=== PATIENT | female | born 1960 | race Caucasian/White ===

== ENCOUNTER → 2018-10-21 | Day surgery (SDC) | payer OTHER ==
--- NOTE | 2018-10-21 18:24 | OP ---
DATE OF OPERATION: 10/21/2018 PREOPERATIVE DIAGNOSIS: Abnormal left mammography. POSTOPERATIVE DIAGNOSIS: Abnormal left mammography. PROCEDURE: Left breast stereotactic needle biopsy with clips. SURGEON: Josey Flores MD ANESTHESIA: Local. COMPLICATIONS: None. This is a sterile procedure. INDICATIONS FOR PROCEDURE: Patient presented with a screening mammogram that noted an area of clustering microcalcifications in the upper outer left breast. The recommendation was for needle biopsy for definitive diagnosis. The procedure was discussed with her and all her questions answered. PROCEDURE IN DETAIL: Patient brought to [facility] in [place], laid prone on the [place] table. Using the lateral approach, the calcifications in the upper outer left breast were identified. A sterile prep obtained. A target was chosen. There was a wide area of calcification in this area. I chose one of the areas that was slightly a bit more posterior. A sterile prep obtained. A target was chosen. There was a positive stroke margin. Using Betadine and 1% lidocaine, a 9-gauge Suros device was used to take several cores from this area. The cores showed calcifications within them. These were handled using calcification protocol. A clip was deployed in the area. Hemostasis assured with direct pressure. Steri-Strips were used to close the incision. She tolerated the procedure well and [facility]. JOSEY FLORES M.D. [id number]
--- NOTE | 2018-10-23 17:43 | PATH ---
Surgical Pathology Report Patient Name: ESDRAS SETHI [facility]. Rec. #: [id number] /Age/Gender: 1960 (Age: 58) / F Account: [id number] Location: [facility] Taken: 10/21/2018 Received: 10/21/2018 Reported: 10/23/2018 Physicians: Josey Rosa M.D. Specimen(s) Received A: LEFT BREAST SPECIMEN-WITH CALCIFICATIONS B: LEFT BREAST SPECIMEN-WITHOUT CALCIFICATIONS Clinical History Nonpalpable lesion Mammographic findings: Microcalcification, suspicious Final Diagnosis A. BREAST, LEFT, WITH CALCIFICATIONS, STEREOTACTIC CORE BIOPSY: BENIGN BREAST PARENCHYMA WITH STROMAL FIBROSIS, FOCAL SCLEROSING ADENOSIS, AND ASSOCIATED MICROCALCIFICATIONS. B. BREAST, LEFT, WITH CALCIFICATIONS, STEREOTACTIC CORE BIOPSY: BENIGN BREAST PARENCHYMA WITH STROMAL FIBROSIS, SCLEROSING ADENOSIS, AND ASSOCIATED MICROCALCIFICATIONS. Electronically Signed Nadege Sam M.D. Gross Description A. Received in formalin labeled "left breast with calcifications," are 6 laureano-yellow, cylindrical portions of fibroadipose tissue ranging from 0.5-3.0 cm in length and averaging 0.3 cm in diameter. The specimens are submitted in toto in 2 cassettes. B. Received in formalin labeled "left breast without calcifications," is a 2.3 x 1.6 x 0.3 cm aggregate of multiple laureano-yellow, irregular to cylindrical portions of fibroadipose tissue. The formalin is filtered and the specimen is entirely submitted in one cassette. Time to formalin fixation: 5 minutes Total formalin fixation time: Approximately 6 hours. 10/22/2018 [facility]10/22/2018
== END | disposition home or self-care (01) ==
LOC: FMAMMOTONE 12:38
PROVIDERS: ATTEND Surgery
PROC: 0HBU3ZX Excision of Left Breast, Percutaneous Approach, Diagnostic (ICD-10-PCS; principal; 2018-10-21)
DX: N60.22 Fibroadenosis of left breast (principal); N60.32 Fibrosclerosis of left breast; N64.89 Other specified disorders of breast; R92.8 Other abnormal and inconclusive findings on diagnostic imaging of breast
CPT/HCPCS: 19081; 87899; 88305-TC; A4648

== ENCOUNTER 2019-02-04 11:26 | Day surgery (SDC) | payer OTHER | END 2019-02-04 14:20 | disposition home or self-care (01) | LOC: JASU-ENDO 11:26 ==

== ENCOUNTER 2024-09-18 20:49 | Inpatient (IN) | payer OTHER ==
[2024-09-18] MEDS ORDERED: ONDANSETRON 4 MG/2 ML VIAL ONE (21:34)
[2024-09-18] MEDS ORDERED: FAMOTIDINE 20 MG/50 ML IVPB 20 MG/50 ML MG IVPB ONE (21:35)
[2024-09-18] MEDS ORDERED: morphine SULFATE 4 MG/ML VIAL ONE (21:47)
[2024-09-18] MEDS: FAMOTIDINE 20 MG/50 ML IVPB 20 MG/50 ML MG IVPB ONE (21:59)
[2024-09-18] MEDS: ONDANSETRON 4 MG/2 ML VIAL IVPUSH ONE (22:00)
[2024-09-18] MEDS: morphine CARPU-JECT 2 MG/1 ML DISP.SYRIN IVPUSH ONE (22:00)
[2024-09-18] MEDS: LACTATED RINGERS SOLUTION 1000 ML INFUS.BAG IV ONE (22:00)
[2024-09-18 22:06] LABS: BASO % 0.3 % (0-2.0); HEMATOCRIT 41.1 % (32.4-45.2); HEMOGLOBIN 14.1 GM/dL (10.7-15.3); LYMPH % 8.5 % (8-40); MCH 31.1 pg (25.7-33.7); MCHC 34.2 g/dl (32.0-36.0); MEAN CELL VOLUME 90.9 fl (80-96); MEAN PLT VOLUME 8.1 fl (7.5-11.1); MONO % 3.2 % (3.8-10.2); PLATELET COUNT 182 10^3/uL (134-434); RBC 4.52 M/mm3 (3.60-5.2); RDW 12.5 % (11.6-15.6); WHITE BLOOD COUNT 11.2 K/mm3 (4.0-10.0)
[2024-09-18 22:14] LABS: INR 1.07 (0.83-1.09); PROTHROMBIN TIME (PATIENT) 11.8 SEC (9.7-13.0)
[2024-09-18 22:17] LABS: ACTIVATED PTT 29.7 SECONDS (25.2-36.5)
[2024-09-18] MEDS ORDERED: MORPHINE SULFATE 2 MG/ML SYRINGE ONE (22:24)
[2024-09-18 22:33] LABS: POTASSIUM 3.6 mmol/L (3.5-5.1)
[2024-09-18 22:36] LABS: MAGNESIUM 1.8 mg/dL (1.8-2.4)
[2024-09-18 22:37] LABS: BLOOD UREA NITROGEN 13.9 mg/dL (7-18); CALCIUM 9.6 mg/dL (8.5-10.1)
[2024-09-18 22:38] LABS: ALBUMIN 4.3 g/dl (3.4-5.0)
[2024-09-18 22:39] LABS: CREATININE 0.7 mg/dL (0.55-1.3)
[2024-09-18 22:40] LABS: PHOSPHOROUS 2.7 mg/dL (2.5-4.9)
[2024-09-18 22:41] LABS: TOT PROT 7.6 g/dl (6.4-8.2)
[2024-09-18 22:43] LABS: BILIRUBIN,TOTAL 1.2 mg/dL (0.2-1)
[2024-09-18] MEDS: morphine CARPU-JECT 4 MG/1 ML DISP.SYRIN IVPUSH ONE (22:54)
[2024-09-18] MEDS: HYDROmorphone HCl 2 MG/ML VIAL IVPUSH ONE (22:55)
[2024-09-18 23:04] LABS: EPI CELLS 6 /uL (0-25.1); HYALINE CASTS 0 /uL (0-3.1); PH,URINE >= 9.0 (5.0-8.0); URINE APPEARANCE CLEAR; URINE BACTERIA 12 /uL (0-1359); URINE BILIRUBIN NEGATIVE (NEGATIVE); URINE COLOR YELLOW; URINE GLUCOSE (UA) NEGATIVE (NEGATIVE); URINE KETONE 4+ (NEGATIVE); URINE LEUK ESTERASE NEGATIVE (NEGATIVE); URINE NITRITE NEGATIVE (NEGATIVE); URINE PROTEIN 1+ (NEGATIVE); URINE WBC 4 /uL (0-25.8)
[2024-09-19] MEDS ORDERED: morphine SULFATE 4 MG/ML VIAL ONE
[2024-09-19] MEDS: morphine CARPU-JECT 4 MG/1 ML DISP.SYRIN IVPUSH ONE (00:04)
[2024-09-19] MEDS ORDERED: PIPERACILLIN/TAZOB 3.375 GM 3.375 GM/50 ML BAG IVPB ONE (00:43)
[2024-09-19] MEDS: LACTATED RINGERS SOLUTION 1000 ML INFUS.BAG IV ONE (00:58)
[2024-09-19] MEDS: IOHEXOL (OMNIPAQUE IV) 350 MG/ML - 100 ML BOTTLE PO ONE (00:58)
[2024-09-19] MEDS ORDERED: HYDROmorphone HCL CARPU-JECT 2 MG/1 ML DISP.SYRIN IVPUSH PRN (01:06)
[2024-09-19] MEDS ORDERED: ACETAMINOPHEN INJECTION 100 ML ONE (01:37)
[2024-09-19] MEDS ORDERED: KETOROLAC TROMETHAMINE 15 MG/ML VIAL ONE (01:37)
[2024-09-19] MEDS: KETOROLAC TROMETHAMINE 15 MG/ML VIAL IVPUSH ONE (01:45)
[2024-09-19] MEDS: PIPERACILLIN/TAZOB 3.375 GM 3.375 GM in DEXTROSE 5%-WATER - 50 ML IVPB ONE (01:45)
[2024-09-19] MEDS: ACETAMINOPHEN 1000 MG/100 ML BAG IVPB ONE (01:45)
[2024-09-19 03:54] VITALS: BMI 21.4
[2024-09-19] MEDS ORDERED: ONDANSETRON 4 MG/2 ML VIAL IVPUSH PRN (05:48)
[2024-09-19] MEDS ORDERED: KETOROLAC TROMETHAMINE 15 MG/ML VIAL IVPUSH PRN (05:50)
[2024-09-19] MEDS ORDERED: DEXTROSE 5%-LACTATED RINGERS 1,000 ML IV SCH (06:00)
[2024-09-19] MEDS: DEXTROSE 5%-LACTATED RINGERS 1,000 ML IV SCH (06:47)
[2024-09-19 08:33] LABS: MCH 31.8 pg (25.7-33.7); MCHC 34.4 g/dl (32.0-36.0); MEAN CELL VOLUME 92.2 fl (80-96); MEAN PLT VOLUME 8.6 fl (7.5-11.1); PLATELET COUNT 152 10^3/uL (134-434); RBC 3.79 M/mm3 (3.60-5.2); RDW 12.5 % (11.6-15.6); WHITE BLOOD COUNT 10.9 K/mm3 (4.0-10.0)
[2024-09-19 08:39] LABS: CHOLESTEROL 206 mg/dL (50-200)
[2024-09-19 08:41] LABS: LDL CHOLESTEROL (ONLY SJRH) 122 mg/dL (5-100)
[2024-09-19 08:42] LABS: HDL CHOLESTEROL 74 mg/dL (40-60)
[2024-09-19 08:50] LABS: CALCIUM 8.2 mg/dL (8.5-10.1)
[2024-09-19 08:51] LABS: BLOOD UREA NITROGEN 13.1 mg/dL (7-18)
[2024-09-19 08:54] LABS: URINE RBC 99 /uL (0-23.9)
[2024-09-19 08:54] LABS: CREATININE 0.6 mg/dL (0.55-1.3)
[2024-09-19 08:55] LABS: ALBUMIN 3.2 g/dl (3.4-5.0); BILIRUBIN,TOTAL 0.8 mg/dL (0.2-1)
[2024-09-19 08:56] LABS: TOT PROT 5.7 g/dl (6.4-8.2)
[2024-09-19] MEDS: ENOXAPARIN NA (PORCINE) 40 MG/0.4 ML DISP.SYRIN SQ SCH (10:58)
[2024-09-19] MEDS: ACETAMINOPHEN 1000 MG/100 ML BAG IVPB PRN (15:28)
[2024-09-20 06:43] VITALS: BP 95/55; PULSE 60; RESP 17; TEMP 98.1
[2024-09-20 08:13] LABS: BASO % 0.3 % (0-2.0); EOS % 3.3 % (0-4.5); HEMATOCRIT 34.5 % (32.4-45.2); HEMOGLOBIN 11.7 GM/dL (10.7-15.3); LYMPH % 30.6 % (8-40); MCH 31.6 pg (25.7-33.7); MCHC 33.9 g/dl (32.0-36.0); MEAN CELL VOLUME 93.2 fl (80-96); MEAN PLT VOLUME 8.4 fl (7.5-11.1); MONO % 8.4 % (3.8-10.2); NEUT % 57.4 % (42.8-82.8); PLATELET COUNT 133 10^3/uL (134-434); RDW 12.7 % (11.6-15.6); WHITE BLOOD COUNT 4.4 K/mm3 (4.0-10.0)
[2024-09-20 08:30] LABS: POTASSIUM 3.6 mmol/L (3.5-5.1)
[2024-09-20 08:33] LABS: CALCIUM 8.3 mg/dL (8.5-10.1)
[2024-09-20 08:34] LABS: ALBUMIN 3.4 g/dl (3.4-5.0); BLOOD UREA NITROGEN 8.1 mg/dL (7-18); MAGNESIUM 1.8 mg/dL (1.8-2.4)
[2024-09-20 08:38] LABS: BILIRUBIN,TOTAL 1.2 mg/dL (0.2-1)
[2024-09-20 09:07] LABS: CREATININE 0.6 mg/dL (0.55-1.3)
== END 2024-09-20 10:42 | disposition home or self-care (01) | DRG 390 ==
LOC: JER 20:49 → JERBED 09-19 00:33 → OBSVTOIN 09-19 01:42 → J7W 09-19 03:23
PROVIDERS: ADMIT Student in an Organized Health Care Education/Training Program
DX: K56.609 Unspecified intestinal obstruction, unspecified as to partial versus complete obstruction (principal); I87.2 Venous insufficiency (chronic) (peripheral); E78.5 Hyperlipidemia, unspecified
CPT/HCPCS: 0241U-QW; 36415; 74018-TC-FY; 74176-TC; 80053; 80061; 81003; 82550; 83605; 83690; 83735; 84100; 84484; 85025; 85027; 85610; 85730; 86850; 86900; 86901; 87086; 93005; 93010; 99285-25; G0378; J0131